=== PATIENT | male | born 1995 | race Caucasian/White ===

== ENCOUNTER 2024-01-25 10:41 | Emergency (ER) | payer MEDICAID ==
[~2024-01-25] VITALS: Ht 180.3 cm; Wt 79.0 kg
[2024-01-25 10:56] VITALS: BP 177/151; PULSE 120; RESP 16; TEMP 97.2; O2SAT 98
[2024-01-25] MEDS: IBUPROFEN 400MG TABLET PO ONE (11:50)
[2024-01-25] MEDS: DIPHENHYDRAMINE 25MG CAPSULE PO ONE (11:50)
[2024-01-25] MEDS: METOCLOPRAMIDE HCL 10MG TABLET PO ONE (11:50)
== END 2024-01-25 13:56 | disposition left against medical advice (07) ==
LOC: ER 10:41
DX: R51.9 Headache, unspecified (principal); Z98.890 Other specified postprocedural states
CPT/HCPCS: 99284; Q0163; J8597